=== PATIENT | female | born 1950 | race Caucasian/White ===

== ENCOUNTER 2019-02-16 05:46 | Inpatient (IN) ==
[2019-02-16] MEDS ORDERED: LIDOCAINE W/ SODIUM BICARB 0.5 ML SYR ONE (05:49)
[2019-02-16] MEDS ORDERED: Clindamycin 900mg (Premix) 900 MG/50 ML BAG IV ONE ×2 (05:49→08:43)
[2019-02-16] MEDS ORDERED: Lactated Ringers 1,000 ML PRIMARY IV ONE ×3 (05:49→12:26)
[2019-02-16] MEDS ORDERED: Nasal Sanitizer POPSWAB ampule 3 AMP (Nozin) PREOP DOSE ENOS SCH (06:00)
[2019-02-16] MEDS ORDERED: LIDOCAINE W/ SODIUM BICARB 0.5 ML SYR SUBD ONE (06:00)
[2019-02-16] MEDS ORDERED: ceFAZolin Inj 2gm (Premix) 2 GM/50 ML BAG IV ONE (06:00)
[2019-02-16] MEDS ORDERED: Vancomycin-PHA to Dose IV PRN (06:00)
[2019-02-16 06:25] LABS: BILIRUBIN,URINE MODERATE (NEG); CLARITY,URINE CLEAR (CLEAR); COLOR,URINE YELLOW (Y); GLUCOSE, URINE (UA) NEGATIVE (NEG); OCCULT BLOOD,URINE NEGATIVE (NEG); PROTEIN,URINE 30 mg/dl (NEG); UROBILINOGEN,URINE 0.2 EU/dL (0.2)
[2019-02-16 06:29] LABS: RBC,URINE 0 /hpf; SQUAMOUS EPITHELIAL CELL,UR FEW; URINE SAMPLE TYPE CLEAN CATCH URINE; URINE SPECIFIC GRAVITY - MAN 1.032
[2019-02-16 06:30] LABS: BACTERIA,URINE RARE
[2019-02-16] MEDS: Lactated Ringers 1,000 ML PRIMARY IV ONE ×2 (06:45→17:44)
[2019-02-16] MEDS ORDERED: Sodium Chloride 0.9% vial 50 ML ONE (06:58)
[2019-02-16] MEDS ORDERED: Vancomycin Inj 1gm vial ONE (06:58)
[2019-02-16] MEDS ORDERED: Gentamicin Inj 40 MG/ML VIAL ONE (06:58)
[2019-02-16] MEDS ORDERED: BUPIVACAINE 0.25% W/ EPI - 10 ML VIAL ONE (06:59)
[2019-02-16] MEDS ORDERED: BACITRACIN 50,000 UNIT VIAL IRRIG ONE (06:59)
[2019-02-16] MEDS ORDERED: Propofol 1,000 MG/100 ML VIAL IV ONE ×2 (07:03→12:26)
[2019-02-16] MEDS ORDERED: REMIFENTANIL HCL 2 MG VIAL IV ONE (07:09)
[2019-02-16] MEDS ORDERED: REMIFENTANIL 1 MG/1 ML IV ONE (07:09)
[2019-02-16] MEDS ORDERED: LIDOCAINE MPF 2% - 5 ML (20 MG/1 ML) ONE (07:12)
[2019-02-16] MEDS ORDERED: PROPOFOL 10 MG/1 ML (200 MG/20 ML) VIAL IV ONE ×2 (07:12→09:52)
[2019-02-16] MEDS ORDERED: MIDAZOLAM 5 MG/1 ML ONE (07:12)
[2019-02-16] MEDS ORDERED: fentaNYL Inj 250 MCG/5 ML VIAL ONE (07:12)
[2019-02-16] MEDS ORDERED: DEXAMETHASONE PF 10 MG/1 ML VIAL ONE (08:17)
[2019-02-16] MEDS ORDERED: ePHEDrine Inj 50 MG/ML AMP ONE (13:04)
[2019-02-16] MEDS ORDERED: BUPivacaine Inj 0.25% PF - 10ml vial ONE (13:24)
[2019-02-16] MEDS ORDERED: BUPivacaine Liposome/PF (Exparel) Inj 20ml vial INFIL ONE (13:24)
[2019-02-16] MEDS ORDERED: LIDOCAINE W/ SODIUM BICARB 0.5 ML SYR SUBD PRN (16:28)
[2019-02-16] MEDS ORDERED: DIAZEPAM 10 MG/2 ML (5 MG/1 ML) CARPUJECT IVP PRN ×2 (16:29→18:49)
--- NOTE | 2019-02-16 16:32 | CRNA.PROGR ---
Anesthesia Time - Procedure/Recovery Time Start Date: 02/16/19 End Date: 02/16/19 Anesthesia : Time In: 07:34 Anesthesia : Time Out: 16:23 Anesthesia : Total Time: 529 - Total Anesthesia Time Total Anesthesia Time (minutes): 529 - Other Weight: 42.275 kg Height: 5 ft Body Mass Index (BMI): 18.1 Physical Status: P2 Anesthesia Type: General Anesthesia : ET (TIVA)
--- NOTE | 2019-02-16 16:33 | CRNA.PROGR ---
Anesthesia Recovery Phase I - Post Anesthesia Evaluation Patient's Condition on Arrival in Phase I: Stable Pain Level: 1
[2019-02-16] MEDS ORDERED: HYDRALAZINE 20 MG/1 ML ONE (16:43)
--- NOTE | 2019-02-16 16:48 | GEN.OPNOTE ---
Operative Note Surgery Date: 02/16/19 Preoperative Diagnosis: 1. Left lower extremity lumbar radiculopathy. 2. Left L3-4 paracentral herniated nucleus pulposus extending caudally into the lateral recess posteriorly displacing and impinging upon the transversing L4. nerve root. 3. The left L3-4 herniated nucleus pulposus is superimposed on a very prominent broad based disc protrusion at this level that combined with extensive. thickening of the ligamentum flavum and bony arthropathy and hypertrophy results in severe central canal stenosis at this level. 4. Inferior L3 vertebral body burst fracture with retropulsion of bone posteriorly into the spinal canal. 5. Status post L4-5 and L5-S1 lumbar interbody and posterolateral instrumented fusion. Postoperative Diagnosis: 1. Left lower extremity lumbar radiculopathy. 2. Left L3-4 paracentral herniated nucleus pulposus extending caudally into the lateral recess posteriorly displacing and impinging upon the transversing L4. nerve root. 3. The left L3-4 herniated nucleus pulposus is superimposed on a very prominent broad based disc protrusion at this level that combined with extensive. thickening of the ligamentum flavum and bony arthropathy and hypertrophy results in severe central canal stenosis at this level. 4. Inferior L3 vertebral body burst fracture with retropulsion of bone posteriorly into the spinal canal. 5. Status post L4-5 and L5-S1 lumbar interbody and posterolateral instrumented fusion. Procedure: 1.) L4-S1 lumbar hardware removal. (CPT code: 44516). 2.) Partial L3 laminectomy with medial facetectomies and foraminotomies bilaterally for decompression of severe lumbar central canal, severe bilateral lateral recess, severe bilateral neuroforaminal stenosis, and removal of a left L3-4 caudally migrated disc extrusion. (CPT code: 47881). 3.) Complete redo L4 laminectomy with medial facetectomies bilaterally for decompression of severe lumbar central canal, severe bilateral lateral recess, severe bilateral neuroforaminal stenosis, and removal of a left L3-4 caudally migrated disc extrusion. (CPT code: 80562). 4.) Arthrodesis, combined posterolateral technique with posterior interbody technique, L3-4. (CPT code: 78804). 5.) Posterolateral arthrodesis, L4-5 bilaterally in preparation for posterolateral fusion L4-5. (CPT code: 50019). 6.) Insertion of a 10 mm x 11 mm x [address]ne [address] titanium interbody cage filled in the center with autograft into the L3-4 interspace for fusion of the L3-4 interspace. (CPT code: 96930). 7.) Segmental posterolateral instrumented fusion, L3-L5 using [place] Brendan 3 and Aesculap pedicle screw and rene systems. (CPT code: 12160). 8.) Augmentation of the L3 pedicle screw placement in the L3 pedicles and L3 vertebral body using methylmethacrylate. 9.) Use of autograft harvested through the same incision, cleaned of soft tissue and moreselized for interbody and posterolateral fusion. (CPT code: 64928). 10.) Use of small [employer] INFUSE bone morphogenic protein (implantable allograft), 10 cc [employer] Vitoss Bimodal synthetic bone graft substitute (implanatable allograft), and 4 cc [employer] Active Matrix (implantable allograft), and 30 cc [employer] BIO DBM Plus Putty with cancellous (implantable allograft) for interbody and posterolateral fusion. (CPT code: 59059). 11.) Use of [employer] computer assisted Neuronavigation system for cannulization of the L3 pedicles bilaterally for the subsequent placement of the L3 pedicle screws bilaterally. (CPT code: 74726). 12.) Use of intra-operative fluoroscopy for localization of the correct surgical level and for the final confirmation of the position of the L3-4 interbody cage and for the final confirmation of the position of the posterolateral instrumentation. 13.) Use of intra-operative neuromonitoring including EMG's and SSEP's and for measuring the impediance of the placed pedicle screws. Surgeon: Robert Morris MD Gis Application Developer: LYN Farmer Anesthesia Provider: Jeremiah Matute CRNA Anesthesia Type: General Estimated Blood Loss (mL): 375 Fluids: See anesthesia record Pathology: None Indications: Ms. Stratton is a 67 year old woman with chronic back pain. She underwent an anterior cervical discectomy and fusion in 2012 and a L4-S1 lumbar fusion in 2014. In April of 2018, Ms. Stratton started having low back pain again and in July, Ms. Stratton started to have tingling and weakness in her left leg. Ms. Stratton under went a DexaScan last week, and has been experiencing severe bilateral leg and groin pain and weakness. She continues to get sharp "electrical" shocks down bilateral legs and causes her to fall. She has been using a wheelchair and a bedside commode. Her lumbar MRI demonstrated a very prominent broad based disc protrusion at this level with a superimposed left paracentral herniated nucleus pulposus extending caudally into the lateral recess behind the L4 vertebral body/medial to the left L4 pedicle. There is marked ligamentous hypertrophy at this level that combined with the prominent disc bulge and the disc herniation, produces severe central canal stenosis at this level. She had a lumbar myelogram with post myelogram CT that demostrated severe spinal stenosis from a large disc herniation at the L3-4 level above her L4-S1 fusion extending caudally into the left lateral recess with a burst fracture of the inferior aspect of the L3 vertebral body with retropulsion of bone into the spinal canal. Ms. Stratton was just miserble from pain. We discussed proceeding with a L4=S1 hardware removal, L3-4 lumbar decompression, L3-4 transforaminal lumbar interbody fusion, and L3-4 posterolateral instrumented fusion. She wished to proceed with the surgical procedure and presents today for the procedure. Findings: 1.) Severe L3-4 central canal stenosis. 2.) Severe L3-4 lateral recess stenosis bilaterally. 3.) Severe L3-4 neuroforaminal stenosis bilaterally. 4.) L3-4 broad based prominent subligamentous disc protrusion. 5.) L3-4 facet arthropathy/hypertrophy and ligamentous hypertrophy. 6.) Gelled/solidified but not fused posterolateral bone product from previous surgery. 7.) No motion across the L4-5 and L5-S1 levels, fusion across the L4-5 and L5-S1 facet joints. Complications: Durotomy with CSF leak sewn up primarily with 6-0 prolene suture. Operative Summary: Ms. Stratton was met in the preoperative area. Her surgical history and physical in her surgical chart was reviewed. The procedure to be performed was confirmed with Ms. Dickey and we were in agreement on the procedure to be performed and this matched what was written on the patient's consent form. Any questions that Ms. Stratton, her , or her daughter had were answered before she was taken back to the operating room suite. Ms. Stratton was brought back to the operating room suite and put under general anesthesia and intubated by the anesthesia staff. She had a Hernnadez catheter placed in her bladder for the procedure. She pneumatic compression hose placed on her lower legs bilaterally. She was carefully rolled over onto the Manuel surgical table with her arms gently positioned upwards with her shoulders abducted less than 90. Her arms were well-padded with foam padding on top the padding of the surgical armboards. The region of her chest and axilla was checked bilaterally to make sure that there were no pressure points over the region of the brachial plexus bilaterally. Her breasts were checked be below the chest pad of the Manuel table with no pressure points over the nipples. All bony prominences were well padded. Her Hernandez catheter was checked be free from kinks. Her pneumatic compression hose was attached pneumatic compression device. The C-arm fluoroscopy unit was used to help localize the rostral extension needed to Ms. Stratotn previous surgical midline lumbar incision to be able to remove her hardware and also to extend her fusion rostrally. The intended skin incision was marked with a skin marker was several crosshatches. Ms. Stratton was prepped and draped in the usual and standard fashion. She was given 900 mg of clindamycin IV and 1 g of vancomycin IV for perioperative antibiosis. She was given 10 mg of Decadron IV. A standard surgical timeout was performed identifying the correct patient, the correct procedure, and the correct equipment being available for the procedure. The intended skin incision was injected subcutaneously with quarter percent Marcaine with 1 in 200,000 epinephrine. 20 mL of local anesthetic was used. The skin incision was incised with a 10 blade scalpel and all dermal and superficial bleeding points were coagulated with bipolar cautery. Dissection was continued through the scant subcutaneous tissue and scar tissue down to the lumbosacral fascia. The fascia was incised along the lowest remaining spinous processes and the dissection was continued in a subperiosteal fashion down the spinous process and out over the lamina. With the level of the lumbar lamina now identified the dissection caudally through the scar tissue from the patient's previous surgery was taken out more laterally as the dissection proceeded ventrally to localize the patient's hardware from her previous L4-S1 posterior lateral instrument effusion and to avoid entry into the previously decompressed spinal canal. The hardware was identified and dissected from the surrounding scar tissue using Bovie cautery and a large Leksell rongeur. A fairly extensive amount of previous bone fusion product that had gelled and solidified but had not incorporated into the bony spine elements was removed with a straight as well as up angled curettes and the large, narrow, and small Leksell rongeurs. With the levels now all identified dissection was continued rostrally in the normal tissue planes until the L3 lamina was completely exposed as was the inferior aspect the L2 lamina. Dissection was taken laterally exposing the L4-3 and L3-4 facet joints bilaterally with care taken to leave the L2-3 facet capsules intact. Dissection was taken laterally to expose the L3 transverse processes bilaterally and to re-expose the L4 and L5 transverse processes bilaterally. The set screws in the tulips of the L4, L5, and S1 pedicle screws were then removed. There was no movement discernible in the position of the rods or of the pedicle screws with the loosening of the set screws. The rods were then both both removed bilaterally. The pedicle screws were then all tested by affixing the Aesculap pedicle screw equipment driver to each of the pedicle screws and gently tugging on them with the pedicle screws all still with good solid purchase in the pedicle and vertebral body bone and with no discernible movement noted across the L4-5 and L5-S1 levels. Thus despite much of the bone product for the previous surgery not going on to form solid bone product across his surgical levels the L4-S1 levels appeared to be solidly fused from fusion across the facet joints as well as likely fusion across the intervertebral spaces as well. The S1 pedicle screws were then removed with the Aesculap pedicle screw equipment driver however, the L4 and L5 pedicle screws were left in place to obtain two points of purchase below the intended extension of the fusion across the L3-4 level. With the majority of the hardware now removed, any additional bone product from the patient's previous surgeries that was not solidly incorporated into the bony spinal elements was removed. With this further dissection there was no true L4- 5 or L5-S1 facet joints being able to be identified consistent with the patient likely being fused across these facet joints bilaterally. Extensive decortication was then performed of the L3-L4 and L5 transverse processes bilaterally as well as the lateral aspect of the L2-3 facet joint and the posterolateral bone mass, where the L4-5 and L5-S1 facet joints had been. The decortication was performed with the [employer] Midas Blayne high-speed electric drill with a matchstick bit. The bone dust created was collected and saved to be used as autograft during the fusion portion of the procedure. The [place] neuro navigation reference arc was securely attached to the L3 spinous process and a spin was performed with the [facility] fluor[facility]. The Jeanne neuro navigation pedicle finder was then used to cannulate the L3 pedicles bilaterally. The internal aspect of the pedicles were palpated with a small ball-tip instrument to assure that there were no cortical breaches. A Jamshidi needle was then placed into the L3 pedicle on the left and advanced into the vertebral body and 10 mL of vertebral body bone marrow was collected and saved for portion of this to be used to saturate the [place] Vitoss Bimodal synthetic bone graft substitute with for the posterolateral aspect of the fusion. Because of the small size of the pedicle screws and subsequently the small size of the pedicle screws that were able to be placed, the pedicles were not tapped. Because of Ms. Stratton soft bone, it was decided to augment the pedicle screws at this level with methyl methacrylate bone cement. The methyl methacrylate was mixed and approximately 2-3 mL of methylmethacrylate was placed into each of the pedicle screw channels and then the pedicle screws were quickly placed into the channels containing the methylmethacrylate. 4.5 x 45 mm [place] Brendan 3 pedicle screws were placed into the L3 pedicles bilaterally. The pedicle screws with the methylmethacrylate did obtained good purchase in the pedicle and vertebral body bone. All pedicle screws were then interrogated, the newly placed L3 pedicle screws as well as the previously placed L4 and L5 pedicle screws with triggered EMGs and all pedicle screws demonstrated to be of sufficiently high i mpedance indicating that they were not in close proximity to nerve structures. Another spin was performed with the 3-D fluoroscopy unit providing further confirmation that the L3 pedicle screws were contained within the confines of the pedicles bilaterally and that they were surrounded by some methylmethacrylate extending into the intricacies of the bone. Attention was turned to the decompression portion of the procedure. A large Leksell rongeur was used to remove the caudal aspect of the L3 spinous process and then used to pare down the thick scar formation over the spinal canal down to approximately the level of the dorsal aspect of the lamina and the exposed posterior lateral elements of the spine laterally bilaterally. The high-speed TopOPPS Blayne drill with a matchstick bit was then used to perform a partial laminectomy of L3 with medial facetectomies and foraminotomies bilaterally. An up angled curette was used to dissect the insertion of the yellow ligament from underneath the remaining aspect the ventral aspect of the L3 lamina and the plane between the yellow ligament and the dura was established. Surgical findings included severe central canal as well as severe bilateral lateral recess stenosis secondary to bony arthropathy and hypertrophy and ligamentous hypertrophy. To assure that the decompression of the L3-4 level was complete dissection proceeded caudally into the zone of scar tissue from the patient's previous surgery and the upper aspect of the L4 lamina from the previous surgery that had been left was encountered and this was carefully dissected from the scar tissue and was removed as was the bony attachments of the lamina to the lateral aspect of the canal overhanging the lateral recesses and this completed the dorsal, caudal aspect of the decompression. During the dissection in the lateral recess on the left a durotomy occurred and Miss Dickey markedly diminutive dura measuring 6-7 mm in length transversely from posterior lateral to posterior medial but with only a small opening in the arachnoid which did leak some CSF. This was sewn up primarily with 6-0 Prolene suture in a running fashion. There was no leakage of CSF noticed on subsequent Valsalva maneuver. The medial facetectomies at L3-4 bilaterally were then extended with the high- speed drill with a matchstick bit. Dissection was carefully performed adjacent to the takeoff of the L4 nerve roots bilaterally identifying the L3-4 disc space bilaterally. A D'Errico nerve root protector was used to protect and carefully retract the thecal sac and transversing L4 nerve root bilaterally and the epidural veins over the disc space were coagulated with bipolar cautery turned down to a low setting and then cut with microscissors. An annulotomy's were performed bilaterally with 15 blade scalpel and disc material was removed bilaterally with a pituitary rongeur. Additional disc and cartilaginous endplate was then removed bilaterally using the K2 disc space florence from a size 7 mm disc space shaver to a size 9 mm disc space shaver in 1 mm increments with additional disc material being removed with a pituitary rongeur between the increasing size disc space florence. This was done with the intention of placing two cages in the disc space. An Jone down-biting curet was then used to remove disc laterally in the disc space bilaterally as well as to try to remove any bone fragments from the inferior aspect of the L3 vertebral body which demonstrated a compression fracture of the inferior endplate on preoperative imaging. The disc and bone fragments were removed with a pituitary rongeur. The down-biting Jone curette was then used to decorticate the remaining aspect of the inferior L3 endplate and the superior aspect of the L4 endplates in preparation for fusion of the L3-4 interspace. The L3-4 interspace was irrigated with bacitracin irrigation to try to float out any further disc or bone fragments. Approximately 5 mL of Jeanne BIO DBM Plus Putty with cancellous chips was placed into the interspace bilaterally and moved anteriorly with a bone tamp. A 10 mm x 11 mm x 22 mm [place] Tritanium PL titanium lumbar interbody cage was selected and filled in the center with autograft and then inserted into the L3-4 interspace on the left with the experimental aircraft mechanic. The interspace on the right was then inspected for the potential placement of the same cage from this side however it was clear that there was not enough room to place another cage into the interspace from that side. The cage placed from the left side was then gently countersunk and rotated with a bone tamp and mallet. The cage obtained good purchase between the L3 and L4 endplates. The final position of the cage was confirmed with lateral fluoroscopy. The canal and lateral recesses and neuroforamen of the exiting nerve roots in the lateral recesses adjacent to the transversing nerve roots was inspected both by visual inspection as well as by palpation with the Wake instrument. There was disc material noted to be rostrally migrated subligamentously from the disc space in the lateral recess on the right. This was completely removed with a medium down-biting Jone curette and pituitary rongeur. There was extruded disc material found in the lateral recess on the left below the L3-4 disc space extending underneath the medial aspect of the thecal sac as well as underneath the transversing L4 nerve root. This disc material was all teased out and removed with a medium down-biting Jone curette and the pituitary rongeur. Excellent decompression of the spinal canal, lateral recesses, neuroforamen, and of the exiting and transversing nerve roots was assured both by visual inspection as well as by palpation in the canal, lateral recesses, and in the neuroforamen above and below the exiting nerve roots, and above and below the transversing nerve roots as they transversed medial to the pedicles with the Wake instrument. The appropriate size 5.5 mm Aesculap pre-bent lordotic lumbar rods were then selected with 60 mm length rods being selected which were then affixed to the [place] pedicle screws at L3 bilaterally with [place] set screws and to the L4 and L5 Aesculap pedicle screws bilaterally with new Aesculap set screws with all of the set screws over the rods being first tightened down hand tight and then tightened down to their final tightness using the [place] and Aesculap torque counter torque devices. The surgical site was pulse lavaged with 3 L of bacitracin/vancomycin/gentamicin solution. The 10 mL of [place] detox bimodal synthetic bone graft substitute (implantable allograft) saturated with 5 mL of vertebral body bone marrow and 5 mL of diluted [email or web address] Active Matrix (4 mL diuted to 16 ml) (implantable allograft) was then split with half of this product being placed lateral to the hardware construct over the decorticated L3-L4 and L5 transverse processes and with this product also being pushed underneath the hardware across the decorticated posterior lateral fusion mass with Wake instrument. The remaining approximately 25 mL of Jeanne BIO DBM Plus Putty with cancellous (implantable allograft) mixed with any remaining autograft was then split with half of this product being placed over the [place] Vitoss synthetic bone graft substitute from the L3 transverse process to the L5 transverse processes and this bone product was also pushed in to the decorticated L3 and L4 facet joints bilaterally with the Andreas instrument. The canal and lateral recesses were inspected for any bone fragments. Any identified were removed with forceps. A small amount of bacitracin irrigation was placed into the canal and lateral recesses which was then subsequently removed with suction. The posterior aspect of the dura was then dried with a sterile dry sponge. A piece of 1 cm x 3 cm DuraGen synthetic dural matrix was then carefully advanced underneath the thecal sac and then wrapped around the lateral aspects and posterior aspect of the thecal sac over the repaired durotomy site. A small amount of FloSeal hemostatic agent was placed in the lateral recesses bilaterally. The DuraGen was then completely sealed to the posterior and posterior lateral aspects of the dura and over all of the exposed elements of the dura with Tisseel. A piece of compressed Gelfoam was then placed across the canal. This was then completely cut covered with FloSeal hemostatic agents as well as all edges of the Gelfoam. Because of the durotomy, although there was no noted leakage of CSF after the dural repair, Ms. Stratton dura was extremely thin and attenuated and therefore it was desired not to place a drain so the retractors were all removed and meticulous hemostasis of the bahena the dissection plane was performed with coagulation using bipolar cautery. The surgical site was quite dry. The closure portion of the procedure was begun. The lumbosacral fascia was closed tightly using #1 Vicryl suture in an interrup selina fashion. The surgical site was then irrigated with bacitracin irrigation. The subcutaneous tissue was then reapproximated with 2-0 Vicryl suture in a inverted fashion however after placing a few these became evident that there was going to be a significant space between the subcutaneous tissue and the fascia and therefore a medium Hemovac drain was placed between the subcutaneous tissue and the fascia. The subcutaneous closure was then continued. The dermis and superficial subcutaneous tissue was reapproximated with 3-0 Vicryl suture in an inverted interrupted fashion. The Ioban drape was pulled back from the skin edges and the final layer of closure was performed surgical stainless steel radha. The incision was cleansed with bacitracin soaked sponge and dried with a sterile dry sponge. The incision was then dressed with a Silverlon dressing. The surgical drain was secured with suture. The drain site was dressed. All surgical drapes removed from Ms. Stratton. She was carefully rolled over onto the PACU stretcher. She was awoken and a the anesthesia staff. She was taken to the recovery room in stable condition. All surgical counts reported as correct by the scrub and circulating personnel. A Physician's assistant associate full professor, Miss Gail Rowland PA-C, assisted with the procedure including the exposure and closure portions of the procedure. She also provided irrigation and suctioning throughout the procedure. She also skillfully and carefully retracted the nerve structures during the more critical portions of the procedure such as the discectomy and intervertebral cage placement portions of the procedure.
[2019-02-16] MEDS: HYDRALAZINE 20 MG/1 ML IVP ONE ×2 (16:51→17:02)
[2019-02-16] MEDS ORDERED: HYDROmorphone 2 MG/1 ML ONE (17:21)
[2019-02-16] MEDS: HYDROmorphone 2 MG/1 ML IVP PRN ×3 (17:22→17:42)
[2019-02-16] MEDS ORDERED: DIAZEPAM 10 MG/2 ML (5 MG/1 ML) CARPUJECT ONE (17:52)
--- NOTE | 2019-02-16 18:05 | NEURO.PROG ---
Subjective Post Op Day: 0 Pain Management: IV Hernandez Catheter: Yes Ambulating: No Additional Details: Waking up in PACU. Surgical back pain and left knee pain. Moving all extremities. Transfer to med/surg floor when parameters met. Continue post-operative antibiotics. Continue post-operative pain control. Bedrest, HOB up to 20 degrees for intra-operative repaired durotomy. Advance diet. Objective : Data - Vital Signs Vital Signs and I&O: Vital Signs - Last Taken Temperature 97.0 F 02/16/19 07:00 Pulse Rate 53 L 02/16/19 07:00 Respiratory Rate 16 02/16/19 07:00 Blood Pressure 127/67 02/16/19 07:00 Pulse Ox 92 02/16/19 07:00 Intake and Output (24hr x 4 totals) 02/14/19 02/15/19 02/16/19 02/17/19 05:59 05:59 05:59 05:59 Intake Total 3800 / 3800 Output Total 675 / 675 Balance 3125 / 3125
[2019-02-16] MEDS ORDERED: Vancomycin-PHA to Dose IV SCH (18:49)
[2019-02-16] MEDS ORDERED: MAGNESIUM 400 MG/5 ML - 30 ML (MILK OF MAGNESIA) PO PRN (18:49)
[2019-02-16] MEDS ORDERED: Prochlorperazine Edisylate Inj 10mg/2ml vial IVP PRN (18:49)
[2019-02-16] MEDS ORDERED: BISACODYL 5 MG TABLET PO PRN (18:49)
[2019-02-16] MEDS ORDERED: ALENDRONATE 70 MG TABLET PO SCH (18:49)
[2019-02-16] MEDS ORDERED: MAGNESIUM CITRATE 296 ML SOLUTION PO PRN (18:49)
[2019-02-16] MEDS ORDERED: Fleet Enema 133ml RECTAL PRN (18:49)
[2019-02-16] MEDS ORDERED: HYDROcodone-APAP 10 MG-325 MG TABLET PO PRN (18:49)
[2019-02-16] MEDS ORDERED: PROMETHAZINE 25 MG/1 ML VIAL IM PRN (18:49)
[2019-02-16] MEDS ORDERED: Metoclopramide Inj 10 MG/2 ML VIAL IVP PRN (18:49)
[2019-02-16] MEDS ORDERED: ONDANSETRON 4 MG/2 ML VIAL IVP PRN (18:49)
[2019-02-16] MEDS ORDERED: HYDROcodone-APAP 5 MG -325 MG TABLET PO PRN (18:49)
[2019-02-16] MEDS ORDERED: Ondansetron ODT Tab 4 MG TAB PO PRN (18:49)
[2019-02-16] MEDS ORDERED: MORPHINE SULFATE 2 MG/1 ML IVP PRN (18:49)
[2019-02-16] MEDS: oxyCODONE-ACETAMINOPHEN 5-325 TAB PO PRN ×2 (19:36→23:17)
[2019-02-16] MEDS: Propranolol Tab 40 MG TAB PO SCH (20:33)
[2019-02-16] MEDS: DILTIAZEM 30 MG TABLET PO SCH (20:34)
[2019-02-16] MEDS: OMEPRAZOLE 20 MG CAPSULE PO SCH (20:34)
[2019-02-16] MEDS: Simvastatin Tab 40 MG TAB PO SCH (20:34)
[2019-02-16] MEDS: METOPROLOL SUCCINATE 100 MG SR 24H TABLET PO SCH (20:34)
[2019-02-17] MEDS: oxyCODONE-ACETAMINOPHEN 5-325 TAB PO PRN (04:29)
[2019-02-17 05:29] LABS: BASOPHILS # (AUTO) 0 10*3/UL; BASOPHILS % (AUTO) 0 % (0-1); EOSINOPHILS # (AUTO) 0 10*3/UL; EOSINOPHILS % (AUTO) 0 % (0-8); Hematocrit [HCT] 28.7 % (37.0-47.0); Hemoglobin [HGB] 9.1 g/dL (12.0-16.0); LYMPHOCYTES # (AUTO) 0.51 10*3/uL; MEAN CORPUSCULAR HGB CONC 31.7 g/dL (33-37); MEAN CORPUSCULAR VOLUME 97.6 FL (81-99); MEAN PLATELET VOLUME 10.3 FL (7.4-12.2); MONOCYTES # (AUTO) 0.94 10*3/UL (0.3-0.8); MONOCYTES % (AUTO) 6.8 % (5-15); NEUTROPHILS # (AUTO) 12.38 10*3/UL; NEUTROPHILS % (AUTO) 89.1 % (50-80); RED BLOOD COUNT 2.94 10^6/uL (4.20-5.40)
[2019-02-17 05:35] LABS: BLOOD UREA NITROGEN 10 mg/dL (7-22); BUN/CREATININE RATIO 16.66 (6-20)
[2019-02-17 06:10] LABS: PLATELET MORPHOLOGY COMMENT NORMAL MORPHOLOGY (NORM); RBC MORPHOLOGY COMMENT NORMAL MORPHOLOGY (NORM); WBC MORPHOLOGY COMMENT NORMAL MORPHOLOGY (NORM)
--- NOTE | 2019-02-17 08:04 | NEURO.PROG ---
Subjective Post Op Day: 1 Pain Management: PO Hernandez Catheter: Yes Flatus: Yes Diet: Regular Ambulating: No Additional Details: Mrs Stratton is awake and alert. She denies headache. She continues at bedrest with head of bed elevated to 20 degrees. She is afebrile and her VSS She states the preop pain in her legs is decreased in intensity. She has strong dorsi and plantar flexion bilaterally. Plan: Continue bedrest with head of bed no greater than 20 degrees until Tuesday. Objective : Data - Labs CBC and BMP: 02/17/19 04:40 02/17/19 04:40 - Vital Signs Vital Signs and I&O: Vital Signs - Last Taken Temperature 96.9 F 02/17/19 05:00 Pulse Rate 83 02/17/19 05:00 Respiratory Rate 16 02/17/19 00:18 Blood Pressure 110/58 02/17/19 05:00 Pulse Ox 89 02/17/19 05:41 Intake and Output (24hr x 4 totals) 02/15/19 02/16/19 02/17/19 02/18/19 05:59 05:59 05:59 05:59 Intake Total 6405 / 6405 Output Total 1820 / 1820 Balance 4585 / 4585
[2019-02-17] MEDS ORDERED: predniSONE 5 MG TABLET PO SCH ×2 (09:00→21:00)
[2019-02-17] MEDS: oxyCODONE/APAP 10/325 Tab 1 EACH TAB PO PRN (09:27)
[2019-02-17] MEDS: PANTOPRAZOLE 40 MG TABLET PO SCH (09:28)
[2019-02-17] MEDS: CloNIDine Tab 0.1 MG TABLET PO SCH ×2 (12:10→12:44)
[2019-02-17] MEDS: DILTIAZEM 30 MG TABLET PO SCH ×3 (12:10→21:42)
[2019-02-17] MEDS: Propranolol Tab 40 MG TAB PO SCH ×3 (12:11→21:44)
[2019-02-17] MEDS: OMEPRAZOLE 20 MG CAPSULE PO SCH ×2 (12:11→21:43)
[2019-02-17] MEDS: Multivitamin Tab 1 TAB PO SCH ×2 (12:11→12:44)
[2019-02-17] MEDS: METOPROLOL SUCCINATE 100 MG SR 24H TABLET PO SCH ×3 (12:11→21:43)
[2019-02-17] MEDS: CHOLECALCIFEROL 1000 IU TABLET PO SCH ×2 (12:12→12:44)
[2019-02-17] MEDS: HYDROcodone-APAP 7.5 MG-325 MG TABLET PO PRN ×3 (13:25→21:42)
--- NOTE | 2019-02-17 13:39 | PDOC ---
HPI - History of Present Illness Date of Service: 02/17/19 Time of Service: 13:34 Chief Complaint: Back pain History of Present Illness: This is a very pleasant 68-year-old female that presented for back surgery with Dr. Morris on 02/16/2019, see his surgical notes regarding procedure performed. Hospitalist service was consulted to help address medical issues in the setting of the surgery. Postoperatively, the patient has not had any chest pain, dispensed, nausea or vomiting, or headaches. She is lying flat because of a dural tear that was recognized at the time surgery and repaired. She has no complaints otherwise. She states that she is treated by for hypertension, hypercholesterolemia, rheumatoid arthritis, next other medical issues. Thus far, no exacerbations of medical issues. She wondered about her antihypertensive medications as they were held this morning pending my evaluation but we have cleared the patient to go ahead and resume her home medications for blood pressure. Past Medical History Medical History: 1. Hypertension. 2. Hypercholesterolemia. 3. Chronic back pain. 4. Rheumatoid arthritis. 5. Osteoporosis Surgical History: 1. Prior lumbar surgery. 2. Neck fusion. 3. Hysterectomy Pertinent Family History: There is no significant history of heart disease or diabetes in the patient's family Past Social History: for several years. 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 Does not smoke. Occasionally drinks alcohol. Has 2 children described as healthy. Tobacco Use: Never Smoker In the Past 12 Months, Have Used or Abuse Any of the Following Substance: None Alcohol Use: Occasionally Medication / Allergies Home Medications: Home Medications Medication Instructions Recorded Confirmed alendronate 70 mg tablet 70 mg PO QWEEK 09/04/18 02/15/19 aspirin 81 mg tablet,delayed 81 mg PO QDAY 09/04/18 02/15/19 release cholecalciferol (vitamin D3) 2,000 2,000 unit PO QDAY 09/04/18 02/15/19 unit capsule diltiazem 30 mg tablet 30 mg PO BID tab 09/04/18 02/15/19 glucosamine-chondroitin 250 mg-200 2 tab PO QDAY tab 09/04/18 02/15/19 mg tablet leflunomide 20 mg tablet 20 mg PO QDAY 09/04/18 02/15/19 metoprolol succinate ER 100 mg 100 mg PO BID 09/04/18 02/15/19 tablet,extended release 24 hr multivitamin,[id number]-[id number] 1 tab PO QDAY 09/04/18 02/15/19 tablet prednisone 5 mg tablet 5 mg PO QDAY 09/04/18 02/15/19 propranolol 20 mg tablet 20 mg PO BID 09/04/18 02/15/19 simvastatin 40 mg tablet 40 mg PO QHS 09/04/18 02/15/19 cyclobenzaprine 10 mg tablet 10 mg PO TID PRN #90 tab 10/27/18 02/15/19 ropinirole 0.25 mg tablet 0.25 mg PO QHS #90 tab 10/27/18 02/15/19 tramadol 50 mg tablet 50 mg PO Q6H PRN #60 tab 10/27/18 02/15/19 clonidine HCl 0.1 mg tablet 0.1 mg PO QDAY tab 01/15/19 02/15/19 omeprazole 20 mg capsule,delayed 20 mg PO BID cap 01/15/19 02/15/19 release hydrocodone 5 mg-acetaminophen 325 1 tab PO Q6H PRN #80 tab 01/26/19 02/15/19 mg tablet Allergies/Adverse Reactions: Allergies Allergy/AdvReac Type Severity Reaction Status Date / Time methotrexate Allergy Intermediate Not Verified 02/15/19 08:37 Applicable amoxicillin [From Augmentin] Allergy Mild RASH Verified 02/15/19 08:37 cefuroxime [From Ceftin] Allergy Mild RASH Verified 02/15/19 08:37 clavulanic acid Allergy Mild RASH Verified 02/15/19 08:37 [From Augmentin] erythromycin base Allergy Mild Stomach Verified 02/15/19 08:37 Cramps hydroxychloroquine Allergy Mild Not Verified 02/15/19 08:44 [From Plaquenil] Applicable Penicillins Allergy Mild RASH Verified 02/15/19 08:37 Sulfa (Sulfonamide Allergy Mild RASH Verified 02/15/19 08:37 Antibiotics) latex Allergy Rash Verified 02/16/19 11:56 Review of Systems - Cardiovascular Cardiovascular: REPORTS: Negative System Review - Gastrointestinal Gastrointestinal / Abdominal: REPORTS: Negative System Review - Genitourinary Genitourinary: REPORTS: Negative System Review - Neurological Neurologic: REPORTS: Negative System Review, Other (She states her sharp shooting pains preoperatively have not been present since surgery.) Exam - Vitals Vital Signs: Vital Signs Temperature 97.4 F Temperature Source Temporal Artery Scan Pulse Rate [Radial] 84 Pulse Rate 71 Respiratory Rate 18 Blood Pressure [Left Arm] 128/52 Blood Pressure 173/97 Pulse Ox 95 Oxygen Flow Rate 3 Oxygen Delivery Method Nasal Cannula Height 4 ft 11.5 in Weight 93 lb 3.2 oz - General General Appearance: No Acute Distress, Cooperative - Head Head Exam: Normal Inspection, Normocephalic, Atraumatic - Eye Eye Exam: POSITIVE: No Scleral Icterus - ENT ENT Exam: POSITIVE: Mucous Membranes Moist - Neck Neck Exam: Normal Inspection, No Tenderness, No Lymphadenopathy, No Thyromegaly, JVP is not Raised - Respiratory Respiratory Exam: POSITIVE: Clear to Auscultation - Bilaterally, Breathing Non Labored - Cardiovascular Cardiovascular Exam: POSITIVE: RRR, No Murmur, No Clicks, No Gallops, No Rubs, No JVD - GI/Abdominal GI/Abdominal Exam: POSITIVE: Normal Bowel Sounds, Non Tender, Non Distended, Soft - Rectal Rectal Exam: POSITIVE: Deferred - External Exam: POSITIVE: Deferred Exam: POSITIVE: Deferred, Hernandez Catheter in Place (Urine appears clear) - Extremities Extremities Exam: POSITIVE: No Clubbing Present, No Edema Present, No Cyanosis Present - Neurological Neurological Exam: POSITIVE: Alert, Oriented x 3, No Facial Droop, Speech Intact / Clear, Moves All Extremities Equally Results - Labs CBC and BMP: 02/17/19 04:40 02/17/19 04:40 Assessment and Plan - Patient Problems (1) High blood pressure Current Visit: Yes Status: Chronic Code(s): I10 - Essential (primary) hypertension Qualifiers: Hypertension type: essential hypertension Qualified Code(s): I10 - Essential (primary) hypertension (2) GERD (gastroesophageal reflux disease) Current Visit: Yes Status: Chronic Code(s): K21.9 - Gastro-esophageal reflux disease without esophagitis Qualifiers: Esophagitis presence: esophagitis presence not specified Qualified Code(s): K21.9 - Gastro-esophageal reflux disease without esophagitis (3) High cholesterol Current Visit: Yes Status: Chronic Code(s): E78.00 - Pure hypercholesterolemia, unspecified (4) Lumbar disc disease Current Visit: Yes Status: Chronic Code(s): M51.9 - Unspecified thoracic, thoracolumbar and lumbosacral intervertebral disc disorder (5) Rheumatoid arthritis Current Visit: Yes Status: Chronic Code(s): M06.9 - Rheumatoid arthritis, unspecified Qualifiers: Rheumatoid arthritis location: unspecified site Rheumatoid factor presence: unspecified presence Qualified Code(s): M06.9 - Rheumatoid arthritis, u nspecified (6) Osteoporosis Current Visit: Yes Status: Chronic Code(s): M81.0 - Age-related osteoporosis without current pathological fracture (7) Status post lumbar surgery Current Visit: Yes Status: Acute Code(s): Z98.890 - Other specified postprocedural states - Assessment / Plan Additional Assessment/Plan Details: Resume blood pressure medications. No need for transfusion, hemoglobin and hematocrit noted. PT and OT when able to sit up which sounds like it will be tomorrow some time. Thank you for this consult. Will be the hospitalist service's pleasure to help assist in the evaluation and management of the patient's medical problems during her hospital stay.
[2019-02-17] MEDS: Simvastatin Tab 40 MG TAB PO SCH (21:43)
[2019-02-17] MEDS: predniSONE 5 MG TABLET PO SCH (21:44)
[2019-02-18] MEDS: oxyCODONE/APAP 7.5/325 Tab 1 TAB TAB PO PRN ×4 (02:30→22:00)
[2019-02-18] MEDS: DIAZEPAM 5 MG TABLET PO PRN ×4 (03:20→23:22)
--- NOTE | 2019-02-18 07:14 | NEURO.PROG ---
Subjective Post Op Day: 2 Pain Management: PO Hernandez Catheter: Yes Flatus: Yes Diet: Regular Ambulating: No Additional Details: Mrs Stratton is awake and alert and has no complaints. She has no complaints of headache. I did tell her the plan was to keep her at bedrest with the HOB up to 20 degrees maximum for another 24 hours. Plasma flows are maintained bilateral lower extremities She states she occasionally has tingling in her thighs but denies other peripheral symptoms. She experienced cramping in her left groin yesterday which responded well to Valium. Dorsi and plantar flexion are strong bilaterally. The dressing is dry and intact on her back incision and the hemovac had 30ml se carlo drainage in 12 hours. She is taking po fluids and solids well. Plan: Maintain bedrest for another 24 hours. Ultrasound of bilateral lower extremities in AM before ambulating Discontinue hemovac drain Saline lock IV Continue supportive care and encourage incentive spirometry Objective : Data - Labs CBC and BMP: 02/17/19 04:40 02/17/19 04:40 - Vital Signs Vital Signs and I&O: Vital Signs - Last Taken Temperature 98.5 F 02/18/19 06:41 Pulse Rate 89 02/18/19 06:41 Respiratory Rate 18 02/18/19 06:41 Blood Pressure 152/76 02/18/19 06:41 Pulse Ox 94 02/18/19 06:41 Intake and Output (24hr x 4 totals) 02/16/19 02/17/19 02/18/19 02/19/19 05:59 05:59 05:59 05:59 Intake Total 6405 / 6405 4333 / 4333 Output Total 1820 / 1820 2480 / 2480 Balance 4585 / 4585 1853 / 1853
--- NOTE | 2019-02-18 07:31 | PDOC(PROG) ---
Date of Service: 02/18/19 Time of Service: 07:30 Interval History: Subjective Patient was laying in bed, does not appear in distress. He denied the symptoms except some back pain but no other symptoms no nausea, no vomiting no headaches. She did say that she is on both metoprolol and propranolol for her blood pressure and history of migraine. She is not sure how long she's been on it. Objective : Data - Labs CBC and BMP: 02/17/19 04:40 02/17/19 04:40 Objective : Exam - General General Appearance: No Acute Distress, Cooperative - Head Head Exam: Normal Inspection - Eye Eye Exam: Normal Appearance - ENT ENT Exam: Normal Exam - Neck Neck Exam: Normal Inspection - Respiratory Respiratory Exam: Clear to Auscultation - Bilaterally - Cardiovascular Cardiovascular Exam: RRR - GI/Abdominal GI/Abdominal Exam: Normal Bowel Sounds, Non Tender, Non Distended, Soft, No Organomegaly - Rectal Rectal Exam: Deferred - External Exam: Deferred - Extremities Extremities Exam: Normal Inspection Additional Extremities Exam Details: She is wearing SCD boots. - Neurological Neurological Exam: Alert, Oriented x 3, CN II-XII Intact, No Facial Droop, Speech Intact / Clear - Psychiatric Psychiatric Exam: Normal Affect Assessment and Plan - Patient Problems (1) Status post lumbar surgery Current Visit: No Status: Acute Comment: Management per Dr. Morris. Continue same pain medication. The plan per my discussion with Gail Rowland is to keep the patient on bedrest for another day, do ultrasound of her legs tomorrow before ambulation. There is some anemia I think will repeat her labs today. She was put on telemetry for question of arrhythmia although I don't see any documentation of it. So far she has been normal sinus rhythm. Consider stopping the monitor tomorrow. Code(s): Z98.890 - Other specified postprocedural states (2) Rheumatoid arthritis Current Visit: No Status: Chronic Comment: Continue prednisone. Code(s): M06.9 - Rheumatoid arthritis, unspecified Qualifiers: Rheumatoid arthritis location: unspecified site Rheumatoid factor presence: unspecified presence Qualified Code(s): M06.9 - Rheumatoid arthritis, unspecified (3) High blood pressure Current Visit: No Status: Chronic Comment: Continue current antihypertensive medications. Code(s): I10 - Essential (primary) hypertension Qualifiers: Hypertension type: essential hypertension Qualified Code(s): I10 - Essential (primary) hypertension (4) High cholesterol Current Visit: No Status: Chronic Comment: Same med Code(s): E78.00 - Pure hypercholesterolemia, unspecified (5) GERD (gastroesophageal reflux disease) Current Visit: No Status: Chronic Comment: Continue Protonix. Code(s): K21.9 - Gastro-esophageal reflux disease without esophagitis Qualifiers: Esophagitis presence: esophagitis presence not specified Qualified Code(s): K21.9 - Gastro-esophageal reflux disease without esophagitis
[2019-02-18] MEDS: HYDROcodone-APAP 7.5 MG-325 MG TABLET PO PRN (07:38)
[2019-02-18] MEDS: PANTOPRAZOLE 40 MG TABLET PO SCH (07:39)
[2019-02-18 07:40] LABS: BASOPHILS # (AUTO) 0.01 10*3/UL; BASOPHILS % (AUTO) 0.1 % (0-1); EOSINOPHILS # (AUTO) 0 10*3/UL; EOSINOPHILS % (AUTO) 0 % (0-8); Hematocrit [HCT] 25.3 % (37.0-47.0); Hemoglobin [HGB] 8.1 g/dL (12.0-16.0); LYMPHOCYTES # (AUTO) 0.52 10*3/uL; MEAN CORPUSCULAR HEMOGLOBIN 31.4 PG (27-31); MEAN CORPUSCULAR VOLUME 98.1 FL (81-99); MONOCYTES # (AUTO) 1.21 10*3/UL (0.3-0.8); MONOCYTES % (AUTO) 8.9 % (5-15); NEUTROPHILS # (AUTO) 11.86 10*3/UL; NEUTROPHILS % (AUTO) 86.8 % (50-80); RED BLOOD COUNT 2.58 10^6/uL (4.20-5.40)
[2019-02-18 07:55] LABS: BLOOD UREA NITROGEN 12 mg/dL (7-22)
[2019-02-18 08:10] LABS: PLATELET MORPHOLOGY COMMENT NORMAL MORPHOLOGY (NORM); RBC MORPHOLOGY COMMENT SEE COMMENTS (NORM); WBC MORPHOLOGY COMMENT NORMAL MORPHOLOGY (NORM)
[2019-02-18] MEDS: METOPROLOL SUCCINATE 100 MG SR 24H TABLET PO SCH ×2 (09:33→20:31)
[2019-02-18] MEDS: CHOLECALCIFEROL 1000 IU TABLET PO SCH (09:33)
[2019-02-18] MEDS: CloNIDine Tab 0.1 MG TABLET PO SCH (09:33)
[2019-02-18] MEDS: Propranolol Tab 40 MG TAB PO SCH ×2 (09:33→20:30)
[2019-02-18] MEDS: oxyCODONE/APAP 10/325 Tab 1 EACH TAB PO PRN (09:33)
[2019-02-18] MEDS: DILTIAZEM 30 MG TABLET PO SCH ×2 (09:33→20:31)
[2019-02-18] MEDS: Multivitamin Tab 1 TAB PO SCH (09:33)
[2019-02-18] MEDS: Simvastatin Tab 40 MG TAB PO SCH (20:30)
[2019-02-18] MEDS: predniSONE 5 MG TABLET PO SCH (20:30)
[2019-02-19] MEDS: oxyCODONE/APAP 7.5/325 Tab 1 TAB TAB PO PRN ×4 (01:30→19:54)
[2019-02-19 05:01] LABS: BASOPHILS # (AUTO) 0.01 10*3/UL; BASOPHILS % (AUTO) 0.1 % (0-1); EOSINOPHILS # (AUTO) 0.02 10*3/UL; EOSINOPHILS % (AUTO) 0.1 % (0-8); Hematocrit [HCT] 27.2 % (37.0-47.0); Hemoglobin [HGB] 8.6 g/dL (12.0-16.0); LYMPHOCYTES # (AUTO) 0.51 10*3/uL; MEAN CORPUSCULAR HEMOGLOBIN 30.9 PG (27-31); MEAN CORPUSCULAR HGB CONC 31.6 g/dL (33-37); MEAN CORPUSCULAR VOLUME 97.8 FL (81-99); MEAN PLATELET VOLUME 10.1 FL (7.4-12.2); MONOCYTES # (AUTO) 0.89 10*3/UL (0.3-0.8); MONOCYTES % (AUTO) 6.6 % (5-15); NEUTROPHILS # (AUTO) 11.98 10*3/UL; NEUTROPHILS % (AUTO) 88.9 % (50-80); RED BLOOD COUNT 2.78 10^6/uL (4.20-5.40)
[2019-02-19] MEDS: DIAZEPAM 5 MG TABLET PO PRN ×3 (05:27→19:54)
[2019-02-19] MEDS: DOCUSATE 100 MG CAPSULE PO PRN ×2 (05:54→08:38)
[2019-02-19 06:04] LABS: PLATELET MORPHOLOGY COMMENT NORMAL MORPHOLOGY (NORM); RBC MORPHOLOGY COMMENT NORMAL MORPHOLOGY (NORM); WBC MORPHOLOGY COMMENT NORMAL MORPHOLOGY (NORM)
[2019-02-19] MEDS: PANTOPRAZOLE 40 MG TABLET PO SCH (06:53)
[2019-02-19] MEDS: DILTIAZEM 30 MG TABLET PO SCH ×2 (08:37→20:54)
[2019-02-19] MEDS: Propranolol Tab 40 MG TAB PO SCH ×2 (08:38→20:53)
[2019-02-19] MEDS: CloNIDine Tab 0.1 MG TABLET PO SCH (08:38)
[2019-02-19] MEDS: Multivitamin Tab 1 TAB PO SCH (08:38)
[2019-02-19] MEDS: CHOLECALCIFEROL 1000 IU TABLET PO SCH (08:38)
[2019-02-19] MEDS: METOPROLOL SUCCINATE 100 MG SR 24H TABLET PO SCH ×2 (08:38→20:54)
--- NOTE | 2019-02-19 08:45 | NEURO.PROG ---
Subjective Post Op Day: 3 Pain Management: PO Young Catheter: Yes Flatus: Yes Diet: Regular Additional Details: Mrs Stratton is awake and alert. She is afebrile and her VSS. Incision is dry and intact. She complains of 5/10 low back pain with some persistent left groin pain and muscle spasm. The oxycodone and valium have been adequate for pain control. She has strong dorsi and plantar flexion bilaterally. The bilateral lower extremity venous ultrasound this morning was negative for DVT. She denies headache. She has good bowel sounds and has been passing flatus. Plan is to mobilize this morning with physical therapy. Observe for headache. Discontinue young catheter after she has been up. Dr Morris has been notified of progress. Objective : Data - Labs CBC and BMP: 02/19/19 04:20 02/18/19 07:36 - Vital Signs Vital Signs and I&O: Vital Signs - Last Taken Temperature 97.6 F 02/19/19 06:41 Pulse Rate 105 H 02/19/19 06:41 Respiratory Rate 16 02/19/19 06:41 Blood Pressure 177/99 02/19/19 06:41 Pulse Ox 95 02/19/19 06:41 Intake and Output (24hr x 4 totals) 02/17/19 02/18/19 02/19/19 02/20/19 05:59 05:59 05:59 05:59 Intake Total 6405 / 6405 4333 / 4333 1675 / 1675 Output Total 1820 / 1820 2480 / 2480 2160 / 2160 Balance 4585 / 4585 1853 / 1853 -485 / -485
--- NOTE | 2019-02-19 08:51 | PDOC(PROG) ---
Date of Service: 02/19/19 Time of Service: 08:40 Interval History: Subjective Patient was laying in bed does not appear in distress. She said her pain is about 5 out of 10. No nausea, no shortness of breath. Objective : Data - Labs CBC and BMP: 02/19/19 04:20 02/18/19 07:36 Objective : Exam - General General Appearance: No Acute Distress, Cooperative - Head Head Exam: Normal Inspection - Eye Eye Exam: Normal Appearance - ENT ENT Exam: Normal Exam - Neck Neck Exam: Normal Inspection - Respiratory Respiratory Exam: Clear to Auscultation - Bilaterally - Cardiovascular Cardiovascular Exam: RRR - GI/Abdominal GI/Abdominal Exam: Normal Bowel Sounds, Non Tender, Non Distended, Soft, No Organomegaly - Rectal Rectal Exam: Deferred - External Exam: Deferred - Extremities Extremities Exam: Normal Inspection - Neurological Neurological Exam: Alert, Oriented x 3, CN II-XII Intact, No Facial Droop, Speech Intact / Clear, Moves All Extremities Equally - Psychiatric Psychiatric Exam: Flat Affect - Integumentary Integumentary Exam: Pallor Assessment and Plan - Patient Problems (1) Status post lumbar surgery Current Visit: No Status: Acute Comment: Ultrasound was negative for DVTs she will start physical therapy and get up today. We'll see her progress. She has some anemia but I don't think she needs transfusion yet. No arrhythmia noted. I'm not sure about her baseline hemoglobin I couldn't find any records. Code(s): Z98.890 - Other specified postprocedural states (2) Rheumatoid arthritis Current Visit: No Status: Chronic Comment: Continue prednisone. Code(s): M06.9 - Rheumatoid arthritis, unspecified Qualifiers: Rheumatoid arthritis location: unspecified site Rheumatoid factor presence: unspecified presence Qualified Code(s): M06.9 - Rheumatoid arthritis, unspecified (3) High blood pressure Current Visit: No Status: Chronic Comment: Same blood pressure medication Code(s): I10 - Essential (primary) hypertension Qualifiers: Hypertension type: essential hypertension Qualified Code(s): I10 - Essential (primary) hypertension (4) High cholesterol Current Visit: No Status: Chronic Comment: Same med Code(s): E78.00 - Pure hypercholesterolemia, unspecified (5) GERD (gastroesophageal reflux disease) Current Visit: No Status: Chronic Comment: Same med Code(s): K21.9 - Gastro-esophageal reflux disease without esophagitis Qualifiers: Esophagitis presence: esophagitis presence not specified Qualified Code(s): K21.9 - Gastro-esophageal reflux disease without esophagitis
[2019-02-19] MEDS: oxyCODONE/APAP 10/325 Tab 1 EACH TAB PO PRN (09:26)
--- NOTE | 2019-02-19 17:53 | NEURO.PROG ---
Subjective Post Op Day: 3 Pain Management: PO Hernandez Catheter: Yes Ambulating: Yes Additional Details: Resting in bed. Denies headache currently (mild headache earlier when sitting ups in the chair). Denies leg pain currently, but left groin pain earlier this morning when sitting up on the side of the bed, but less of an issue when up ambulating in afternoon). Left thigh feels "tingly" at times. Drain out yesterday. Still with Hernandez catheter in the bladder. Eating and drinking some. Hemoglobin rebounding. Good/full knee flexion, dorsiflexion, plantarflexion bilaterally. Hernandez out in am. More mobilization tomorrow. Possible [place] evaluation tomorrow. Objective : Data - Labs CBC and BMP: 02/19/19 04:20 02/18/19 07:36 - Vital Signs Vital Signs and I&O: Vital Signs - Last Taken Temperature 97.8 F 02/19/19 16:04 Pulse Rate 100 02/19/19 16:04 Respiratory Rate 20 02/19/19 16:04 Blood Pressure 122/65 02/19/19 16:04 Pulse Ox 91 02/19/19 11:29 Intake and Output (24hr x 4 totals) 02/17/19 02/18/19 02/19/19 02/20/19 05:59 05:59 05:59 05:59 Intake Total 6405 / 6405 4333 / 4333 1675 / 1675 360 / 360 Output Total 1820 / 1820 2480 / 2480 2160 / 2160 1400 / 1400 Balance 4585 / 4585 1853 / 1853 -485 / -485 -1040 / -1040
[2019-02-19] MEDS: predniSONE 5 MG TABLET PO SCH (20:53)
[2019-02-19] MEDS: Simvastatin Tab 40 MG TAB PO SCH (20:54)
[2019-02-20] MEDS: oxyCODONE/APAP 7.5/325 Tab 1 TAB TAB PO PRN ×4 (01:48→18:06)
[2019-02-20] MEDS: DIAZEPAM 5 MG TABLET PO PRN (05:37)
[2019-02-20] MEDS: PANTOPRAZOLE 40 MG TABLET PO SCH (06:52)
--- NOTE | 2019-02-20 06:52 | NEURO.PROG ---
Subjective Post Op Day: 4 Pain Management: PO Young Catheter: Yes Flatus: Yes Diet: Regular Ambulating: Yes Additional Details: Mrs Stratton is up in the chair this morning. Still requiring 2L oxygen. Afebrile, VSS Incision dry and intact Good bilateral dorsi and planter flexion and knee flexion. Groin pain less this morning. Denies headache Still has young catheter in because of her reluctance to be up and out of bed Slow progress in mobilization Plan to increase mobilization discontinue young catheter consult Kaitlin Fairbanks for rehabilitation encourage oral intake Objective : Data - Labs CBC and BMP: 02/19/19 04:20 02/18/19 07:36 - Vital Signs Vital Signs and I&O: Vital Signs - Last Taken Temperature 97.2 F 02/20/19 06:28 Pulse Rate 108 H 02/20/19 06:28 Respiratory Rate 19 02/20/19 06:28 Blood Pressure 142/71 02/20/19 06:28 Pulse Ox 93 02/20/19 06:28 Intake and Output (24hr x 4 totals) 02/18/19 02/19/19 02/20/19 02/21/19 05:59 05:59 05:59 05:59 Intake Total 4333 / 4333 1675 / 1675 860 / 860 Output Total 2480 / 2480 2160 / 2160 3025 / 3025 Balance 1853 / 1853 -485 / -485 -2165 / -2165
--- NOTE | 2019-02-20 08:06 | PDOC(PROG) ---
Date of Service: 02/20/19 Time of Service: 08:10 Interval History: Subjective Patient was sitting in the chair does not appear in distress. Did say that she feels tired but denying other symptoms. Minimal headache. Objective : Data - Labs CBC and BMP: 02/19/19 04:20 02/18/19 07:36 Objective : Exam - General General Appearance: No Acute Distress, Cooperative - Head Head Exam: Normal Inspection - Eye Eye Exam: Normal Appearance - ENT ENT Exam: Normal Exam - Neck Neck Exam: Normal Inspection - Respiratory Respiratory Exam: Clear to Auscultation - Bilaterally - Cardiovascular Cardiovascular Exam: RRR - GI/Abdominal GI/Abdominal Exam: Normal Bowel Sounds, Non Tender, Non Distended, Soft, No Org anomegaly - Rectal Rectal Exam: Deferred - External Exam: Deferred - Extremities Extremities Exam: Normal Inspection - Back Back Exam: Normal Inspection - Neurological Neurological Exam: Alert, Oriented x 3, CN II-XII Intact, No Facial Droop, Speech Intact / Clear, Moves All Extremities Equally - Psychiatric Psychiatric Exam: Normal Affect - Integumentary Integumentary Exam: Normal Color Assessment and Plan - Patient Problems (1) Status post lumbar surgery Current Visit: No Status: Acute Comment: Continue PT and OT. Dr. Morris mentioned [place] for her so referral will be made. She had some anemia postoperatively will recheck her count today. Code(s): Z98.890 - Other specified postprocedural states (2) Rheumatoid arthritis Current Visit: No Status: Chronic Comment: Same medications. Code(s): M06.9 - Rheumatoid arthritis, unspecified Qualifiers: Rheumatoid arthritis location: unspecified site Rheumatoid factor presence: unspecified presence Qualified Code(s): M06.9 - Rheumatoid arthritis, unspecified (3) High blood pressure Current Visit: No Status: Chronic Comment: Same medications Code(s): I10 - Essential (primary) hypertension Qualifiers: Hypertension type: essential hypertension Qualified Code(s): I10 - Essential (primary) hypertension (4) High cholesterol Current Visit: No Status: Chronic Comment: Same med Code(s): E78.00 - Pure hypercholesterolemia, unspecified (5) GERD (gastroesophageal reflux disease) Current Visit: No Status: Chronic Comment: Same med Code(s): K21.9 - Gastro-esophageal reflux disease without esophagitis Qualifiers: Esophagitis presence: esophagitis presence not specified Qualified Code(s): K21.9 - Gastro-esophageal reflux disease without esophagitis
[2019-02-20 08:28] LABS: BASOPHILS # (AUTO) 0.01 10*3/UL; BASOPHILS % (AUTO) 0.1 % (0-1); EOSINOPHILS # (AUTO) 0.01 10*3/UL; EOSINOPHILS % (AUTO) 0.1 % (0-8); Hemoglobin [HGB] 8.6 g/dL (12.0-16.0); LYMPHOCYTES # (AUTO) 0.56 10*3/uL; MEAN CORPUSCULAR HEMOGLOBIN 31.2 PG (27-31); MEAN CORPUSCULAR HGB CONC 31.9 g/dL (33-37); MEAN CORPUSCULAR VOLUME 97.8 FL (81-99); MEAN PLATELET VOLUME 9.9 FL (7.4-12.2); MONOCYTES # (AUTO) 0.68 10*3/UL (0.3-0.8); MONOCYTES % (AUTO) 6.4 % (5-15); NEUTROPHILS % (AUTO) 87.4 % (50-80); RED BLOOD COUNT 2.76 10^6/uL (4.20-5.40)
[2019-02-20 08:38] LABS: BLOOD UREA NITROGEN 13 mg/dL (7-22); BUN/CREATININE RATIO 16.25 (6-20)
[2019-02-20 08:39] LABS: PLATELET MORPHOLOGY COMMENT NORMAL MORPHOLOGY (NORM); RBC MORPHOLOGY COMMENT NORMAL MORPHOLOGY (NORM); WBC MORPHOLOGY COMMENT NORMAL MORPHOLOGY (NORM)
[2019-02-20] MEDS: DILTIAZEM 30 MG TABLET PO SCH ×2 (08:50→21:15)
[2019-02-20] MEDS: Propranolol Tab 40 MG TAB PO SCH ×2 (08:50→21:11)
[2019-02-20] MEDS: CloNIDine Tab 0.1 MG TABLET PO SCH (08:51)
[2019-02-20] MEDS: DOCUSATE 100 MG CAPSULE PO PRN (08:51)
[2019-02-20] MEDS: Multivitamin Tab 1 TAB PO SCH (08:51)
[2019-02-20] MEDS: CHOLECALCIFEROL 1000 IU TABLET PO SCH (08:51)
[2019-02-20] MEDS: METOPROLOL SUCCINATE 100 MG SR 24H TABLET PO SCH ×2 (08:51→21:16)
--- NOTE | 2019-02-20 11:24 | PTI REPORT ---
Thank you for the referral of Julia Stratton. She was seen on 02/19/19 for an inpatient evaluation status post lumbar fusion. SUBJECTIVE: The patient is a 68-year-old female who underwent a fusion by Dr. Morris last 02/16/2019. She has been flat on her back in bed due to a dural tear during surgery. She states that she lives with her in [place]; they have five stairs to get up and down. Her daughter was present during the evaluation and very attentive. She states she is in minimal pain when lying still, but hurts when she tries to move. She states due to her pain and discomfort, she has been in bed for approximately the last two months with almost little to no activity. She states she feels very weak and unable to care for herself. PAST MEDICAL HISTORY: Past medical history can be found in the patient's medical record. OBJECTIVE FINDINGS: General observations: The patient was seen in her room this morning. Bed mobility: The patient was able to transfer from supine to sit with assist of one. Transfers: The patient was able to come from sit to stand with assist of two; however, she didn't last very long and became hypostatic, probably due to the lengthy period of bed rest as well as her medications. Strength: The patient does demonstrate good muscle function in all four extremities with 3/5 for strength with regular testing. Range of motion: The patient demonstrates good range of motion. Endurance: It appears that the patient has very poor endurance. ASSESSMENT: The patient is status post fusion with dural tear. The patient has a long history of bedrest. We may have to have some planning for either swingbed placement in this facility or extra care in the [place] area. Problem List: Generalized weakness/Decreased endurance Decreased ability to complete transfers Decreased ability to complete ambulation Short-Term Goals: To be met by discharge from inpatient: Patient will be able to transfer from bed to stand independently. Patient will be able to ambulate 300 feet with least restrictive assistive device. Patient will be able to ascend and descend five stairs with least restrictive assistive device. Long-Term Goals: To be met following discharge from inpatient: Patient would benefit from outpatient physical therapy. TREATMENT PLAN: Patient will be seen B.I.D during the week and one time per day over the weekend as an inpatient for transfers, ambulation, and strengthening. Ultimately we would like to get her home with her and her daughter with minimal help and have her somewhat independent in her ADLs. INITIAL TREATMENT: Treatment today consisted of the initial evaluation activities only. CARLYLE
--- NOTE | 2019-02-20 13:51 | PT.PROG ---
Progress Note Progress Note: S. Patient stated that she is struggling with pain, she agreed to go for a walk. O. Patient transferred from supine to seated at the edge of bed then ambulated 10 feet to the restroom where she was left with nursing staff. A. Patient tolerated ambulation well, she continues to struggle with pain however required stand by guard assist with ambulation and min assist with transfers. Patient would continue to benefit from skilled therapy to increase strength and mobility. P. Continue POC.
[2019-02-20] MEDS: Simvastatin Tab 40 MG TAB PO SCH (21:11)
[2019-02-20] MEDS: predniSONE 5 MG TABLET PO SCH (21:11)
[2019-02-20] MEDS: oxyCODONE/APAP 10/325 Tab 1 EACH TAB PO PRN (21:52)
--- NOTE | 2019-02-21 06:32 | NEURO.PROG ---
Subjective Post Op Day: 5 Pain Management: PO Hernandez Catheter: No Flatus: Yes Diet: Regular Ambulating: Yes Additional Details: Mrs Stratton is awake and alert, afebrile, VSS. Incision is dry and intact She still requires 1-2 liters of oxygen to maintain saturation in the 90s Good leg strength with knee flexion and dorsi/plantar flexion bilaterally. She ambulated with PT yesterday and with the nurses, continues to complain of left groin pain as her main problem. She has agreed to go to [facility] for rehab if they accept her. Plan: Continue to mobilize Objective : Data - Labs CBC and BMP: 02/20/19 08:04 02/20/19 08:15 - Vital Signs Vital Signs and I&O: Vital Signs - Last Taken Temperature 98.1 F 02/21/19 03:49 Pulse Rate 115 H 02/21/19 03:49 Respiratory Rate 20 02/21/19 03:49 Blood Pressure 137/65 02/21/19 03:49 Pulse Ox 93 02/21/19 05:33 Intake and Output (24hr x 4 totals) 02/19/19 02/20/19 02/21/19 02/22/19 05:59 05:59 05:59 05:59 Intake Total 1675 / 1675 860 / 860 595 / 595 Output Total 2160 / 2160 3025 / 3025 200 / 200 Balance -485 / -485 -2165 / -2165 395 / 395
[2019-02-21] MEDS: PANTOPRAZOLE 40 MG TABLET PO SCH (07:39)
--- NOTE | 2019-02-21 07:52 | PDOC(PROG) ---
Date of Service: 02/21/19 Time of Service: 08:00 Interval History: Subjective She was laying in bed does not appear in distress. She said she did walk yesterday from the bed to the bathroom. Still have some pain in her back at the incision site and the groin. She accepted to go to [facility]. Objective : Data - Labs CBC and BMP: 02/20/19 08:04 02/20/19 08:15 Objective : Exam - General General Appearance: No Acute Distress, Cooperative, Thin - Head Head Exam: Normal Inspection - Eye Eye Exam: Normal Appearance - ENT ENT Exam: Normal Exam - Neck Neck Exam: Normal Inspection - Respiratory Respiratory Exam: Clear to Auscultation - Bilaterally - Cardiovascular Cardiovascular Exam: RRR - GI/Abdominal GI/Abdominal Exam: Normal Bowel Sounds, Non Tender, Non Distended, Soft, No Organomegaly Additional GI/Abdominal Exam Details: Some tenderness not significant at the left groin but I don't feel any mass. - Rectal Rectal Exam: Deferred - External Exam: Deferred - Extremities Extremities Exam: Normal Inspection - Back Back Exam: Normal Inspection - Neurological Neurological Exam: Alert, Oriented x 3, CN II-XII Intact, No Facial Droop, Speech Intact / Clear - Psychiatric Psychiatric Exam: Normal Affect Assessment and Plan - Patient Problems (1) Status post lumbar surgery Current Visit: No Status: Acute Comment: Continue PT and OT. We are waiting to hear from A[facility]. She has some anemia likely secondary to postoperative blood loss will put her on ferrous gluconate. Code(s): Z98.890 - Other specified postprocedural states (2) Rheumatoid arthritis Current Visit: No Status: Chronic Comment: Continue prednisone Code(s): M06.9 - Rheumatoid arthritis, unspecified Qualifiers: Rheumatoid arthritis location: unspecified site Rheumatoid factor presence: unspecified presence Qualified Code(s): M06.9 - Rheumatoid arthritis, unspecified (3) High blood pressure Current Visit: No Status: Chronic Comment: Same medications Code(s): I10 - Essential (primary) hypertension Qualifiers: Hypertension type: essential hypertension Qualified Code(s): I10 - Essential (primary) hypertension (4) High cholesterol Current Visit: No Status: Chronic Comment: Same med Code(s): E78.00 - Pure hypercholesterolemia, unspecified (5) GERD (gastroesophageal reflux disease) Current Visit: No Status: Chronic Comment: Same med Code(s): K21.9 - Gastro-esophageal reflux disease without esophagitis Qualifiers: Esophagitis presence: esophagitis presence not specified Qualified Code(s): K21.9 - Gastro-esophageal reflux disease without esophagitis
[2019-02-21] MEDS: oxyCODONE/APAP 7.5/325 Tab 1 TAB TAB PO PRN ×3 (08:29→20:55)
[2019-02-21] MEDS: DILTIAZEM 30 MG TABLET PO SCH ×2 (08:31→20:55)
[2019-02-21] MEDS: FERROUS GLUCONATE 324 MG TABLET PO SCH (08:32)
[2019-02-21] MEDS: CHOLECALCIFEROL 1000 IU TABLET PO SCH (08:33)
[2019-02-21] MEDS: Multivitamin Tab 1 TAB PO SCH (08:33)
[2019-02-21] MEDS: CloNIDine Tab 0.1 MG TABLET PO SCH (08:33)
[2019-02-21] MEDS: METOPROLOL SUCCINATE 100 MG SR 24H TABLET PO SCH ×2 (08:33→20:55)
[2019-02-21] MEDS: Propranolol Tab 40 MG TAB PO SCH ×2 (08:33→20:55)
--- NOTE | 2019-02-21 09:52 | OTI REPORT ---
Thank you for the referral of Julia Stratton. She was seen on 02/20/19 for an occupational therapy inpatient evaluation status post lumbar fusion. SUBJECTIVE: The patient is a 68-year-old female who had a lumbar fusion. The patient is from [place] and she reports she had back pain for several months and usually deals with it a lot. Prior to surgery the patient had left inner groin pain. Her reports that prior to surgery he was having to help her get dressed and complete her daily ADLs. Post surgery the patient did have a tear and was required to lay flat in bed for 48 hours. At this time the patient reports that she has a lot of back pain and she is still having that inner groin pain. The patient doesn't like her brace; she feels like it rubs on her incision and causes increased pain. PAST MEDICAL HISTORY: Past medical history can be found in the patient's medical record. OBJECTIVE FINDINGS: General observations: The patient was in her chair upon the therapist's arrival. Pain: The patient reports a pain level of 5/10 on the verbal analog scale (0=no pain, 10=worst pain); however, according to the patient's face, the therapist would say her pain level was more a 7 to 8/10. Activities of daily living: The patient was able to complete lower extremity and upper extremity dressing using a braker passenger train and sock aide with mod assist. The patient completed upper extremity dressing with min assist. The patient was also issued a shoe horn and bath sponge although that was not attempted this afternoon. Range of motion/Strength: The patient has good shoulder range of motion with fair strength. Ambulation: The patient was able to functionally ambulate with contact guard assist only to the restroom; although she moved very very slowly due to her pain. ASSESSMENT: The patient would benefit from skilled therapy to increase her independence with ADLs and iADLs as well as activity tolerance. Occupational Therapy Goals: To be met by discharge from inpatient: Patient will be able to complete upper extremity and lower extremity dressing using her adaptive equipment and following lower back precautions with mod independence. Patient will be able to complete toileting and toilet transfers with mod independence using her walker. Patient will be able to complete a full shower with stand by assist only using adaptive equipment when necessary. Patient will increase her activity tolerance to 30 minutes of activity to mimic ADLs. TREATMENT PLAN: Patient will be seen B.I.D during the week and one time per day over the weekend as an inpatient to address the above goals and objectives. INITIAL TREATMENT: Treatment today consisted of the initial evaluation only. CARLYLE
--- NOTE | 2019-02-21 11:04 | OT.PROG ---
Progress Note Progress Note: S: pt stated that she was feeling a little better and her head was not hurting as bad. O: tx consisted of bed mobility from supine to EOB with use of bed rails and SBA for safety, UE RTB exercises of biceps, triceps and chest pulls x15, toileting tasks and hygiene with MOD A for toileting hygiene, ADL task of hand washing with SBA for safety. A: pt tolerated session well. pt moves slowly but reports less pain. P: continue POC
--- NOTE | 2019-02-21 12:04 | PT.PROG ---
Progress Note Progress Note: S. Patient states that she has a headache this morning, however agreed to do some exercises in her room. O. patient performed seated, long arc quads, resisted knee flexion, clam shells and pillow squeezes all x 10 bilaterally, Patient ambulated 10 feet to the restroom and 10 feet back to her bed where she was left with alarm and call light. A. Patient tolerated therapy fair, she continues to struggle with pain, however tolerated the abdominal binder better than the aspen brace. Patient would continue to benefit from skilled therapy to increase strength and mobility. P. Continue POC.
--- NOTE | 2019-02-21 12:15 | CONSULT ---
Consult Note - Consult Consult Date: 02/21/19 Reason for Consult: PreOp Consulation : General Surgery Requesting Physician: Dr. Morris Primary Care Provider: NONE NONE - History of Present Illness History of Present Illness: The patient is a 68-year-old female who is 5 days status post back surgery who I'm asked to see for left groin pain and a possible mass. Patient reports for several weeks she has had some pain in the left lower abdomen and left inguinal region and left anterior thigh. She has a back brace which is bothering her when she wears it it in that increases the discomfort in her left groin. It was thought this was a radiculopathy pain but it has not improved postoperatively. Today the patient was complaining of the discomfort and there was a question of a mass on physical exam. I am asked to see her for the same. Patient has noticed no masses in the area. It seems to be more uncomfortable with direct pressure over it. Applying heat seems to make it better. Past Medical History Medical History: 1. Hypertension. 2. Hypercholesterolemia. 3. Chronic back pain. 4. Rheumatoid arthritis. 5. Osteoporosis Surgical History: 1. Prior lumbar surgery. 2. Neck fusion. 3. Hysterectomy Pertinent Family History: There is no significant history of heart disease or diabetes in the patient's family Past Social History: for several years. 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 Does not smoke. Occasionally drinks alcohol. Has 2 children described as healthy. Tobacco Use: Never Smoker In the Past 12 Months, Have Used or Abuse Any of the Following Substance: None Alcohol Use: Occasionally Medication / Allergies Home Medications: Home Medications Medication Instructions Recorded Confirmed alendronate 70 mg tablet 70 mg PO QWEEK 09/04/18 02/15/19 aspirin 81 mg tablet,delayed 81 mg PO QDAY 09/04/18 02/15/19 release cholecalciferol (vitamin D3) 2,000 2,000 unit PO QDAY 09/04/18 02/15/19 unit capsule diltiazem 30 mg tablet 30 mg PO BID tab 09/04/18 02/15/19 glucosamine-chondroitin 250 mg-200 2 tab PO QDAY tab 09/04/18 02/15/19 mg tablet leflunomide 20 mg tablet 20 mg PO QDAY 09/04/18 02/15/19 metoprolol succinate ER 100 mg 100 mg PO BID 09/04/18 02/15/19 tablet,extended release 24 hr multivitamin,xh-[id number]-isapfrzt 1 tab PO QDAY 09/04/18 02/15/19 tablet prednisone 5 mg tablet 5 mg PO QDAY 09/04/18 02/15/19 propranolol 20 mg tablet 20 mg PO BID 09/04/18 02/15/19 simvastatin 40 mg tablet 40 mg PO QHS 09/04/18 02/15/19 cyclobenzaprine 10 mg tablet 10 mg PO TID PRN #90 tab 10/27/18 02/15/19 ropinirole 0.25 mg tablet 0.25 mg PO QHS #90 tab 10/27/18 02/15/19 tramadol 50 mg tablet 50 mg PO Q6H PRN #60 tab 10/27/18 02/15/19 clonidine HCl 0.1 mg tablet 0.1 mg PO QDAY tab 01/15/19 02/15/19 hydrocodone 5 mg-acetaminophen 325 1 tab PO Q6H PRN #80 tab 01/26/19 02/15/19 mg tablet Gabapentin 1 cap PO DAILY 02/20/19 02/20/19 Potassium Chloride 1 tab PO DAILY 02/20/19 02/20/19 Allergies/Adverse Reactions: Allergies Allergy/AdvReac Type Severity Reaction Status Date / Time methotrexate Allergy Intermediate Not Verified 02/20/19 07:07 Applicable amoxicillin [From Augmentin] Allergy Mild RASH Verified 02/20/19 07:07 cefuroxime [From Ceftin] Allergy Mild RASH Verified 02/20/19 07:07 clavulanic acid Allergy Mild RASH Verified 02/20/19 07:07 [From Augmentin] erythromycin base Allergy Mild Stomach Verified 02/20/19 07:07 Cramps hydroxychloroquine Allergy Mild Not Verified 02/20/19 07:07 [From Plaquenil] Applicable Penicillins Allergy Mild RASH Verified 02/20/19 07:07 Sulfa (Sulfonamide Allergy Mild RASH Verified 02/20/19 07:07 Antibiotics) latex Allergy Rash Verified 02/20/19 07:07 Results - Labs CBC and BMP: 02/20/19 08:04 02/20/19 08:15 Exam - Vitals Vital Signs: Vital Signs Temperature 97 F Temperature Source Oral Pulse Rate [Pulse Oximeter] 122 Pulse Rate [Apical] 100 Pulse Rate [Radial] 82 Pulse Rate 111 Respiratory Rate 20 Blood Pressure [Right Arm] 166/83 Blood Pressure [Left Arm] 137/65 Blood Pressure 173/97 Pulse Ox 95 Oxygen Flow Rate 2 Oxygen Delivery Method Room Air Height 4 ft 11.5 in Weight 95 lb 9.6 oz - General General Appearance: Cooperative, Mild Distress - Respiratory Respiratory Exam: POSITIVE: Breathing Non Labored - GI/Abdominal GI/Abdominal Exam: POSITIVE: Non Tender, Non Distended, Soft Additional GI/Abdominal Exam Details: The patient was examined both laying supine and standing up. I appreciate no mass in the left inguinal area or femoral area. Nothing to suggest an inguinal hernia, femoral hernia, or an enlarged lymph node. She has some diffuse tenderness in the left lower abdomen, left inguinal area and the left anterior thigh. - Neurological Neurological Exam: POSITIVE: Alert, Oriented x 3 - Psychiatric Psychiatric Exam: POSITIVE: Normal Affect, Normal Mood Assessment and Plan - Patient Problems (1) Left inguinal pain Current Visit: Yes Status: Acute Comment: Discomfort is of approximately 3 weeks' duration. Again I do not feel a left inguinal hernia, left femoral hernia, or enlarged lymph nodes. The etiology of the pain is unclear. Nothing to suggest a surgical urgency or emergency. If this does not resolve further in the postoperative period I would be happy to examine her again. If there is any signs of worsening would recommend a limited CT of the left lower abdomen and proximal thigh. I have discussed all the above with Dr. Morris and the patient. Please call if I can be of further assistance. Code(s): R10.32 - Left lower quadrant pain
--- NOTE | 2019-02-21 12:16 | DI ---
VENOUS DOPPLER ULTRASOUND OF BOTH LOWER EXTREMITIES, 02/19/2019 7:00 AM: Clinical History: Leg pain. Previous Exam: None. Technique: 2D real-time imaging and color Doppler ultrasound with compression and augmentation maneuv ers. Deep Venous System: Normal deep venous system from groin to popliteal fossa bilaterally. Superficial Venous System: Normal greater saphenous vein bilaterally. Reading: Negative venous Doppler ultrasound of both lower extremities for deep vein thrombosis.
--- NOTE | 2019-02-21 16:54 | PT.PROG ---
Progress Note Progress Note: S. Patient stated that she would go for a walk, however states she continues to struggle with pain. O. Patient ambulated 10 feet to the restroom, then 20 feet in the subramanian and was wheeled back to her room where she was left in her chair with alarm and call light. A. Patient continues to struggle with pain, she requires min assist with transfers and ambulation. She would continue to benefit from skilled therapy to increase strength, mobility and safety at this time. P. Continue POC.
--- NOTE | 2019-02-21 17:04 | OT.PROG ---
Progress Note Progress Note: Occupational Therapy Pt. participated in physical therapy session however did not feel like participating with OT to complete functional activities other than completing a toileting task with min. A for transfer and for clothing management. NATALIA Benoit/Edda
[2019-02-21] MEDS: Simvastatin Tab 40 MG TAB PO SCH (20:55)
[2019-02-21] MEDS: predniSONE 5 MG TABLET PO SCH (20:55)
[2019-02-22] MEDS: oxyCODONE/APAP 10/325 Tab 1 EACH TAB PO PRN ×2 (01:14→11:51)
[2019-02-22 05:28] VITALS: RESP 16
--- NOTE | 2019-02-22 07:10 | NEURO.PROG ---
Subjective Post Op Day: 6 Pain Management: PO Hernandez Catheter: No Flatus: Yes Diet: Regular Ambulating: Yes Additional Details: Ms Stratton is awake and alert. She told Dr Morris this morning she is doing better and that her groin pain has mostly resolved. She states she has agreed to go to [facility] for continued rehabilitation. Incision is dry and intact. Dorsi and plantar flexion and knee flexion are strong and equal. Plan: From a neuro standpoint Mrs Stratton is ready for discharge to [facility]. Objective : Data - Labs CBC and BMP: 02/20/19 08:04 02/20/19 08:15 - Vital Signs Vital Signs and I&O: Vital Signs - Last Taken Temperature 98.7 F 02/22/19 05:00 Pulse Rate 96 02/22/19 05:00 Respiratory Rate 16 02/22/19 05:00 Blood Pressure 121/59 02/22/19 05:00 Pulse Ox 97 02/22/19 05:09 Intake and Output (24hr x 4 totals) 02/20/19 02/21/19 02/22/19 02/23/19 05:59 05:59 05:59 05:59 Intake Total 860 / 860 595 / 595 560 / 560 Output Total 3025 / 3025 200 / 200 Balance -2165 / -2165 395 / 395 560 / 560
[2019-02-22] MEDS: PANTOPRAZOLE 40 MG TABLET PO SCH (07:43)
--- NOTE | 2019-02-22 08:14 | DCSUMMARY ---
Hospitalization Summary Admit Date: 02/17/2019 Discharge Date: 02/22/19 Hospital Course: Discharge diagnoses 1. Status post back surgery 2. History of hypertension 3. History of hypercholesterolemia 4. History of rheumatoid arthritis 5. History of osteoporosis 6. Anemia postoperatively Hospital course This is a 68 years old female with medical history significant for history of rheumatoid arthritis, hypertension, chronic back pain who came into the hospital and had surgery done by Dr. Morris for details of surgery please see Dr. Morris operative note. Postoperatively the hospitalist service were consulted for management of medical issues. Patient was kept flat for 2 days because of dura tear during surgery that was repaired. She had ultrasound of the leg 2 days of being laying down on her back after that there was no DVT found on the ultrasound she started walking with physical therapy. I saw her later on during her hospital stay we continued with her medication but at times we had to hold her blood pressure medication because blood pressure was at the lower range of normal. She did have postoperative anemia I don't have a previous baseline so I don't know what's her baseline is. she did not require blood transfusion. We put her Her on iron supplementation and multivitamin. She did work with physical therapy and then it was determined that she needs more so [facility] and were consulted and she was accepted there and she will be discharged to continue re habilitation there. Discharge instructions Diet regular Activity as started Medications Active Medications Hydrocodone Bitart/Acetaminophen ([place] 10/325 Tab) 1 - 2 tab PO Q4H PRN PRN Reason: Pain (See Dose Instructions) Hydrocodone Bitart/Acetaminophen ([place] 5/325 Tab) 1 tab PO Q4H PRN PRN Reason: Mild Pain (Scale 1-3) Hydrocodone Bitart/Acetaminophen ([place] 7.5/325 Tab) 1 - 2 tab PO Q4H PRN PRN Reason: Pain (See Dose Instructions) Last Admin: 02/18/19 07:38 Dose: 1 tab Documented by: Bisacodyl (Dulcolax Tab) 10 mg PO DAILY PRN PRN Reason: Constipation Cholecalciferol (Vitamin D3) 2,000 iu PO DAILY [facility] Last Admin: 02/21/19 08:33 Dose: 2,000 iu Documented by: Clonidine HCl (Catapres) 0.1 mg PO DAILY [facility] Last Admin: 02/21/19 08:33 Dose: 0.1 mg Documented by: Diazepam (Valium) 5 - 10 mg PO Q6H PRN PRN Reason: Muscle Spasms Last Admin: 02/20/19 05:37 Dose: 5 mg Documented by: Diazepam (Valium Inj) 5 mg IVP Q6H PRN PRN Reason: Muscle Spasms Diltiazem HCl (Cardizem) 30 mg PO BID [facility] Last Admin: 02/21/19 20:55 Dose: 30 mg Documented by: Docusate Sodium (Colace) 100 mg PO BID PRN PRN Reason: Constipation Last Admin: 02/20/19 08:51 Dose: 100 mg Documented by: Ferrous Gluconate (Fergon) 324 mg PO DAILY [facility] Last Admin: 02/21/19 08:32 Dose: 324 mg Documented by: Sodium Chloride (Normal Saline 0.9%) 25 mls @ 200 mls/hr IV .Post Infusion PRN PRN Reason: Flush Magnesium Citrate (Citrate Of Magnesia Liquid) 148 - 296 ml PO DAILY PRN PRN Reason: Constipation Magnesium Hydroxide (Milk Of Magnesia Susp) 30 ml PO DAILY PRN PRN Reason: Constipation Metoclopramide HCl (Reglan Inj) 10 mg IVP Q6H PRN PRN Reason: NAUSEA Metoprolol Succinate (Toprol Xl) 100 mg PO BID [facility] Last Admin: 02/21/19 20:55 Dose: 100 mg Documented by: Morphine Sulfate (Morphine Inj) 2 mg IVP Q4H PRN PRN Reason: BREAKTHROUGH PAIN Multivitamins Therapeutic (Thera Tab) 1 tab PO DAILY [facility] Last Admin: 02/21/19 08:33 Dose: 1 tab Documented by: Ondansetron HCl (Zofran Odt) 4 mg PO Q6H PRN PRN Reason: NAUSEA / VOMITING Ondansetron HCl (Zofran Inj) 4 mg IVP Q6H PRN PRN Reason: NAUSEA / VOMITING Oxycodone/Acetaminophen (Percocet 10/325 Tab) 1 - 2 each PO Q4H PRN PRN Reason: Pain (See Dose Instructions) Last Admin: 02/22/19 01:14 Dose: 1 each Documented by: Oxycodone/Acetaminophen (Percocet 5/325 Tab) 1 tab PO Q4H PRN PRN Reason: Mild Pain (Scale 1-3) Last Admin: 02/17/19 04:29 Dose: 1 tab Documented by: Oxycodone/Acetaminophen (Percocet 7.5/325 Tab) 1 - 2 tab PO Q4H PRN PRN Reason: Pain (See Dose Instructions) Last Admin: 02/21/19 20:55 Dose: 1 tab Documented by: Pantoprazole Sodium (Protonix) 40 mg PO AC BK [facility] Last Admin: 02/22/19 07:43 Dose: 40 mg Documented by: Prednisone (Deltasone Tab) 5 mg PO BEDTIME [facility] Last Admin: 02/21/19 20:55 Dose: 5 mg Documented by: Prochlorperazine Edisylate (Compazine Inj) 10 mg IVP Q4H PRN PRN Reason: NAUSEA Promethazine HCl (Phenergan Inj) 25 mg IM Q4H PRN PRN Reason: NAUSEA Propranolol HCl (Inderal) 20 mg PO BID [facility] Last Admin: 02/21/19 20:55 Dose: 20 mg Documented by: Simvastatin (Zocor) 40 mg PO BEDTIME [facility] Last Admin: 02/21/19 20:55 Dose: 40 mg Documented by: Sodium Biphosphate/Sodium Phosphate (Fleet Enema) 133 ml RECTAL Q48H PRN PRN Reason: Constipation Follow-up with Dr. Morris as recommended by him, with her PCP postdischarge from [place] Condition at discharge was stable for discharge , Exam - Vitals Vital Signs: Vital Signs Temperature 98.6 F Temperature Source Oral Pulse Rate [Pulse Oximeter] 93 Pulse Rate [Apical] 100 Pulse Rate [Radial] 82 Pulse Rate 111 Respiratory Rate 16 Blood Pressure [Right Arm] 138/69 Blood Pressure [Left Arm] 121/59 Blood Pressure 173/97 Pulse Ox 97 Oxygen Flow Rate 2 Oxygen Delivery Method Nasal Cannula Height 4 ft 11.5 in Weight 94 lb 6.4 oz - General General Appearance: No Acute Distress, Cooperative - Head Head Exam: Normal Inspection - Eye Eye Exam: POSITIVE: Normal Appearance - ENT ENT Exam: POSITIVE: Normal Exam - Neck Neck Exam: Normal Inspection - Respiratory Respiratory Exam: POSITIVE: Clear to Auscultation - Bilaterally - Cardiovascular Cardiovascular Exam: POSITIVE: RRR - GI/Abdominal GI/Abdominal Exam: POSITIVE: Normal Bowel Sounds, Non Tender, Non Distended, Sof t, No Organomegaly - Rectal Rectal Exam: POSITIVE: Deferred - External Exam: POSITIVE: Deferred - Extremities Extremities Exam: POSITIVE: Normal Inspection - Neurological Neurological Exam: POSITIVE: Alert, Oriented x 3, CN II-XII Intact, No Facial Droop, Speech Intact / Clear, Moves All Extremities Equally - Psychiatric Psychiatric Exam: POSITIVE: Flat Affect Patient Problems - Patient Problem List (1) Status post lumbar surgery Current Visit: No Status: Acute Code(s): Z98.890 - Other specified postprocedural states Category: Surgical (2) Rheumatoid arthritis Current Visit: No Status: Chronic Code(s): M06.9 - Rheumatoid arthritis, unspecified Qualifiers: Rheumatoid arthritis location: unspecified site Rheumatoid factor presence: unspecified presence Qualified Code(s): M06.9 - Rheumatoid arthritis, unspecified Category: Medical (3) High blood pressure Current Visit: No Status: Chronic Code(s): I10 - Essential (primary) hyp ertension Qualifiers: Hypertension type: essential hypertension Qualified Code(s): I10 - Essential (primary) hypertension Category: Medical (4) High cholesterol Current Visit: No Status: Chronic Code(s): E78.00 - Pure hypercholesterolemia, unspecified Category: Medical (5) GERD (gastroesophageal reflux disease) Current Visit: No Status: Chronic Code(s): K21.9 - Gastro-esophageal reflux disease without esophagitis Qualifiers: Esophagitis presence: esophagitis presence not specified Qualified Code(s): K21.9 - Gastro-esophageal reflux disease without esophagitis Category: Medical
--- NOTE | 2019-02-22 09:19 | OT.PROG ---
Progress Note Progress Note: S: pt stated that she was okay and agreed to therapy. O: tx consisted of UE yellow RTB exercises in all planes x10, toilet transfer independently, toileting tasks and hygiene with MIN A for doffing and donning LE clothing. pt completed toileting tasks and hygiene independently. A: pt is in pain with movement but overall is making small gains in mobility. P: continue POC
[2019-02-22] MEDS: DILTIAZEM 30 MG TABLET PO SCH (09:39)
[2019-02-22] MEDS: CHOLECALCIFEROL 1000 IU TABLET PO SCH (09:39)
[2019-02-22] MEDS: Propranolol Tab 40 MG TAB PO SCH (09:39)
[2019-02-22] MEDS: METOPROLOL SUCCINATE 100 MG SR 24H TABLET PO SCH (09:40)
[2019-02-22] MEDS: Multivitamin Tab 1 TAB PO SCH (09:40)
[2019-02-22] MEDS: CloNIDine Tab 0.1 MG TABLET PO SCH (09:40)
[2019-02-22] MEDS: FERROUS GLUCONATE 324 MG TABLET PO SCH (09:40)
--- NOTE | 2019-02-22 10:05 | PT.PROG ---
Progress Note Progress Note: S. Patient stated that she is feeling a little better this morning. O. Patient performed seated long arc quads, heel toe raises, pillow squeezes, clam shells, resisted knee flexion all x 10 bilaterally with yellow thera bands. Patient ambulated 10 feet to the restroom and 10 feet back to her bed where she was left in bed with alarm and call light. A. Patient tolerated therapy well this morning, she continues to struggle with pain and requires frequent rest breaks during exercise and ambulation, she would continue to benefit from skilled therapy to increase strength, mobility and safety. Patient would benefit from 24 hour care. P. Continue POC until Discharge.
[2019-02-22 11:24] VITALS: BP 91/47; TEMP 98.1; O2SAT 95
== END 2019-02-22 12:31 | DRG 460 ==
LOC: MED/SURG 05:46
PROVIDERS: ADMIT Neurological Surgery; ATTEND Neurological Surgery